=== PATIENT | female | born 1995 | race Two or more races ===

== ENCOUNTER 2024-11-13 10:23 | Day surgery (SDC) | payer BC, OTHER ==
[2024-11-06 14:09] VITALS: BMI 22.1
[2024-11-13 14:22] VITALS: RESP 20; TEMP 97.1
[2024-11-13 14:36] VITALS: BP 110/62; PULSE 68
== END 2024-11-13 13:30 | disposition home or self-care (01) ==
LOC: FASU-ENDO 10:23
PROVIDERS: ATTEND Internal Medicine Gastroenterology
PROC: 0DJD8ZZ Inspection of Lower Intestinal Tract, Via Natural or Artificial Opening Endoscopic (ICD-10-PCS; principal; 2024-11-13 11:23)
DX: Z80.0 Family history of malignant neoplasm of digestive organs (principal); K64.8 Other hemorrhoids; K64.4 Residual hemorrhoidal skin tags
CPT/HCPCS: 81025